=== PATIENT | male | born 1985 | race African-American/Black ===

== ENCOUNTER 2019-08-31 09:55 | Emergency (ER) | payer OTHER, SELFPAY ==
--- NOTE | 2019-08-31 10:03 | ED.EYEPROB ---
HPI - Eye Problem General Chief complaint: Eye Problems Stated complaint: Eye Source: patient and RN notes reviewed Mode of arrival: ambulatory Limitations: no limitations History of Present Illness HPI Narrative: This is a 34 years old male presents to the office for an evaluation of right eye irritation since he woke up this morning. Describes as foreign body sensation, tearing, blurry and very photosensitivity. He does not wear glasses or contact lens. Denies eye injury or trauma prior to symptom. 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 He does not recall any symptoms when he get off work. TD is up to date. Related Data Allergies Allergy/AdvReac Type Severity Reaction Status Date / Time No Known Allergies Allergy Unverified 10/02/18 19:42 Review of Systems Review of Systems: Narrative: CONSTITUTIONAL: Denies fever EYES: Reports left eye blurry, sensitivity/painful to light CARDIOVASCULAR: Denies chest pain RESPIRATORY: Denies cough GASTROINTESTINAL: Denies abdominal pain, nausea, vomiting SKIN: Denies rash MUSCULOSKELETAL: Denies acute joints pain NEUROLOGIC: Denies lightheaded/dizziness All other systems reviewed are negative, except as documented in HPI. [facility] Past Medical History Medical History (Updated 08/31/19 @ 10:23 by MARICHUY Boyd) No significant past medical history Comments At time of signature, I agree with nursing past medical, surgical, social and family history. There is no relevant family history pertinent to the presenting complaint. Exam Narrative: Exam Narrative: GENERAL: This is a well-nourished, well-developed patient, in no apparent distress. EYES: PERRL. EMOI s/p tetracaine eyedrop. Topical anesthetic was instilled with good anesthesia using 1gtt of opth anesthetic agent (tetracaine). Fluorescein stain of the R eye was performed with uptake of dye noted at 3 oclock. No epithelial defect was noted. NO FB, ulcer or dendritic lesions. Upper lid was everted and no FB or lesions were noted. Normal saline irrigation eye solution was performed and the patient tolerated the procedure well, no adverse reaction or complications. CARDIOVASCULAR: Regular rate and rhythm without murmurs, gallops, or rubs. RESPIRATORY: Clear to auscultation. Breath sounds equal bilaterally. No wheezes, rales, or rhonchi. GASTROINTESTINAL: Abdomen soft, non-tender, nondistended. Bowel sounds are active. No hepato-splenomegaly, or palpable masses. No guarding. SKIN: warm, intact with no suspicious lesions or rash, good texture and turgor. NEURO: awake, alert, and oriented to person, place and time. There were no obvious focal neurologic abnormalities. Steady gait Liseth Coma Scale Eye Opening: Spontaneous 4 Liseth Coma Scale Motor: Obeys Commands 6 Liseth Coma Scale Verbal: Oriented 5 Course Vital Signs Vital signs: Vital Signs Temperature 96.9 F L 08/31/19 10:07 Pulse Rate 85 08/31/19 10:07 Respiratory Rate 16 08/31/19 10:07 Blood Pressure 134/66 08/31/19 10:07 Pulse Oximetry 99 08/31/19 10:07 Temperature 96.9 F L 08/31/19 10:07 Pulse Rate 85 08/31/19 10:07 Respiratory Rate 16 08/31/19 10:07 Blood Pressure 134/66 08/31/19 10:07 Pulse Oximetry 99 08/31/19 10:07 MDM - Eye Problem MDM Narrative Medical decision making narrative: Discharge instructions reviewed with patient, as well as provided in writing per nursing staff. The instructions also include specific and strict return/GO TO THE ER as well as f/u information. All questions have been answered, and the patient deny any further questions with discharge and discharge plan. Differential Diagnosis Differential diagnosis: Likely corneal abrasion, conjunctivitis, acute iritis, subconjunctival hemorrhage, corneal ulcer and ruptured globe Critical Care Time Critical Care Time Critical Care Time: No Discharge Plan Discharge Clinical Impression: Corneal abrasion
[2019-08-31 10:07] VITALS: BP 134/66; PULSE 85; RESP 16; TEMP 36.1; O2SAT 99
== END 2019-08-31 10:25 | disposition home or self-care (01) ==
PROVIDERS: Emergency Provider Nurse Practitioner; PCP Emergency Medicine
DX: S05.01XA Injury of conjunctiva and corneal abrasion without foreign body, right eye, initial encounter (principal); X58.XXXA Exposure to other specified factors, initial encounter; K50.90 Crohn's disease, unspecified, without complications; E11.9 Type 2 diabetes mellitus without complications
CPT/HCPCS: 99213; A9270; G0463

== ENCOUNTER 2019-12-31 17:17 | Emergency (ER) | payer OTHER, SELFPAY ==
--- NOTE | 2019-12-31 17:26 | ED.GENADULT ---
HPI - General Adult General Chief complaint: Eye Problems Stated complaint: right eye pain Time Seen by Provider: 12/31/19 17:30 Source: patient Mode of arrival: ambulatory Limitations: no limitations History of Present Illness HPI narrative: 34-year-old male patient presents to the [facility] with complaints of right eye irritation that started approximately 2 AM this morning whenever he was getting dressed for work. Patient Cerner if something might of flushing his eye that has been having a little bit of pain, blurred vision and clear watery discharge. Patient states he has issues with eye irritation a lot. Patient does have sensitivity to the light but denies any itchiness. Related Data Allergies Allergy/AdvReac Type Severity Reaction Status Date / Time No Known Allergies Allergy Verified 12/31/19 17:32 Review of Systems Review of Systems: Narrative: CONSTITUTIONAL: Denies fever, chills, or sweats. EYES: Positive right eye blurry vision, positive redness, positive sensitivity to light positive clear discharge. ENT: Denies rhinorrhea, congestion, sore throat, or otalgia. CARDIOVASCULAR: Denies chest pain, palpitations, or edema. RESPIRATORY: Denies cough or dyspnea. GASTROINTESTINAL: Denies abdominal pain, nausea, vomiting, or diarrhea. GENITOURINARY: Denies dysuria or hematuria. SKIN: Denies rash or itching. MUSCULOSKELETAL: Denies back pain, joint pain, or myalgia. NEUROLOGIC: Denies headache, numbness, or weakness. PSYCHIATRIC: Denies anxiety or depression. [facility] Past Medical History Medical History (Updated 12/31/19 @ 17:44 by MARICHUY Gallo) Crohn's disease Diabetes Social History Social History Gender identity (if verbalized by the patient): Male Comments At the time of my signature I agree with nursing past medical history, surgical, social, and family history. There is no relevant family history pertinent to the presenting complaint. Exam Narrative: Exam Narrative: GENERAL: Well-appearing, well-nourished, and in no acute distress. HEAD: Normocephalic, atraumatic. EYES: PERRLA and EOM intact without limitation or complaint of pain, no periorbital soft tissue swelling ,no erythema, warmth or tenderness noted, no obvious deformity. No crusting or swelling.clear tearing. positive photophobia. No nystagmus No FB or lesion on lid eversion. Corneas grossly clear, no obvious FB or hyphens/hypopyon. injection to sclera of the right eye. Lids and lashes clear. ENT: Nares clear, no rhinorrhea or epistaxis. Mucous membranes moist. NECK: Supple. No lymphadenopathy CHEST: Clear to auscultation. No respiratory distress. HEART: Regular rate and rhythm. No murmur heard. Normal peripheral pulses. ABDOMEN: Soft, nontender, nondistended, normal active bowel sounds. EXTREMITIES: Normal range of motion. No edema. SKIN: Warm, dry, no rash. NEURO: No focal deficits. Alert and oriented x3. Course Vital Signs Vital signs: Vital Signs Temperature 37.3 C 12/31/19 17:28 Pulse Rate 83 12/31/19 17:28 Respiratory Rate 16 12/31/19 17:28 Blood Pressure 124/74 12/31/19 17:28 Pulse Oximetry 99 12/31/19 17:28 Temperature 37.3 C 12/31/19 17:28 Pulse Rate 83 12/31/19 17:28 Respiratory Rate 16 12/31/19 17:28 Blood Pressure 124/74 12/31/19 17:28 Pulse Oximetry 99 12/31/19 17:28 Vital signs reviewed. Procedures Other Procedure Procedure 1: Other Procedure: 1 drop of tetracaine was placed in patient's right eye. Fluorescein was used to dye the eye and the eye was examined under the Edwards lamp. There is a very mild corneal abrasion noted to the right eye in the 4:00 to 5:00 area. The eye was washed out with eyewash. patient tolerated procedure well Medical Decision Making Differential Diagnosis Differential Diagnosis: Differential diagnosis: Conjunctivitis, foreign body, corneal ulcer, Keratitis, dendritic lesions, corneal abrasi
[2019-12-31 17:28] VITALS: BP 124/74; PULSE 83; RESP 16; TEMP 37.3; O2SAT 99
== END 2019-12-31 17:45 | disposition home or self-care (01) ==
PROVIDERS: Emergency Provider Nurse Practitioner Family; PCP Emergency Medicine
DX: S05.01XA Injury of conjunctiva and corneal abrasion without foreign body, right eye, initial encounter (principal); X58.XXXA Exposure to other specified factors, initial encounter; E11.9 Type 2 diabetes mellitus without complications; K50.90 Crohn's disease, unspecified, without complications
CPT/HCPCS: 99213; A9270; G0463

== ENCOUNTER 2020-01-11 15:41 | Emergency (ER) | payer OTHER, SELFPAY ==
[2020-01-11 15:48] VITALS: BP 142/85; PULSE 78; RESP 15; TEMP 36.7; O2SAT 98
--- NOTE | 2020-01-11 17:10 | ED.WEAKNESS ---
HPI - Weakness General Chief complaint: Weakness Stated complaint: weakness Time Seen by Provider: 01/11/20 17:10 History of Present Illness HPI Narrative: After getting up from the toilet this afternoon he became very diaphoretic and light headed. He then let himself down to the ground. He believes that he breifly lost consciousness. He says that he feels like he has returned to baseline at the time of my evaluation. Prior to the episode he was in his usual state of health. No CP, palpitations, SOB, nausea, vomiting, pain/injury. Related Data Allergies Allergy/AdvReac Type Severity Reaction Status Date / Time No Known Allergies Allergy Verified 12/31/19 17:32 Review of Systems Review of Systems: All systems reviewed & are unremarkable except as noted in HPI and below Constitutional: Constitutional: Denies fever(s) and Denies weakness Cardiovascular: Cardiovascular: Denies chest pain Respiratory: Respiratory: Denies dyspnea Gastrointestinal: Gastrointestinal: Denies abdominal pain, Denies nausea and Denies vomiting Musculoskeletal: Musculoskeletal: Denies back pain Neurologic: Reports syncope, Denies headache(s), Denies numbness and Denies weakness Endocrine: Endocrine: Denies fatigue and Denies polydipsia [facility] Past Medical History Medical History Crohn's disease Diabetes Social History Social History Gender identity (if verbalized by the patient): Male Exam Const: General: healthy appearing, no acute distress and alert Orientation/consciousness: patient oriented x3 HENMT: Head: normal to inspection Resp: Effort & Inspection: normal respiratory effort Auscultation: clear to auscultation bilaterally, no rales, no rhonchi and no wheezes Cardio: Jugular venous distension: no JVD Rate: regular rate Rhythm: regular rhythm Heart sounds: no murmurs GI: Inspection: non-distended GI Palp: Yes Soft to palpation and No Tenderness to palpation present (GI) Skin: General skin exam: normal color Neuro: General: patient oriented x3, moves all extremities, no focal motor deficits and CN's II-XI intact bilaterally Speech: normal speech Gait exam (Neuro): Normal gait present Extrem: General: normal to inspection and no edema Psych: Appearance: well kempt Affect: normal affect Course Vital Signs Vital signs: Vital Signs Temperature 36.7 C 01/11/20 15:48 Pulse Rate 78 01/11/20 15:48 Respiratory Rate 15 01/11/20 15:48 Blood Pressure 142/85 H 01/11/20 15:48 Pulse Oximetry 98 01/11/20 15:48 Temperature 36.7 C 01/11/20 15:48 Pulse Rate 82 01/11/20 17:40 Respiratory Rate 15 01/11/20 15:48 Blood Pressure 134/71 01/11/20 17:40 Pulse Oximetry 98 01/11/20 15:48 MDM - Weakness MDM Narrative Medical decision making narrative: Most likely vagal syncope. Nothing acute on EKG. Asymptomatic at the time of my evaluation. Vitals reassuring Medical Records Attestation: I reviewed the patient's medical records. Discharge Plan Discharge Clinical Impression: Syncope Qualifiers: Syncope type: unspecified Qualified Code(s): R55 - Syncope and collapse Patient Disposition: Home, Self-Care Condition: Stable Instructions: Syncope (ED) Prescriptions: No Action erythromycin 5 mg/gram (0.5 %) ointment 1 applic RIGHTEYE BID Qty: 3.5 RF: 0 Follow-up/Referrals: Roberto Gr MD [Primary Care Provider] -
--- NOTE | 2020-01-11 17:17 | ECG_ITS ---
Measurements Intervals [place] Rate: 78 P: 23 AL: 178 QRS: 24 QRSD: 114 T: 30 QT: 364 QTc: 416 Interpretive Statements SINUS RHYTHM INTRAVENTRICULAR CONDUCTION DELAY NONSPECIFIC ST & T-WAVE ABNORMALITY- INF/LAT LEADS BASELINE ARTIFACT- I, II, III, AVL, AVF, V2, V4-V6 BORDERLINE ECG Electronically Signed On 01-11-2020 18:38:42 [employer]LECT[employer]ICAL [employer]CH[employer]IC by Enrique Elliott D.O.
[2020-01-11 17:39] VITALS: BP 139/71; BP 142/70; PULSE 68; PULSE 73
[2020-01-11 17:40] VITALS: BP 134/71; PULSE 82
== END 2020-01-11 18:19 | disposition home or self-care (01) ==
PROVIDERS: Emergency Provider Emergency Medicine; PCP Emergency Medicine
DX: R55 Syncope and collapse (principal); K50.90 Crohn's disease, unspecified, without complications; E11.9 Type 2 diabetes mellitus without complications; I45.9 Conduction disorder, unspecified; R94.31 Abnormal electrocardiogram [ECG] [EKG]
CPT/HCPCS: 93005; 99283

== ENCOUNTER 2020-07-30 20:11 | Emergency (ER) | payer BC, SELFPAY ==
--- NOTE | ~2020-07-30 | CT_ITS ---
EXAMINATION: CT lumbar spine wo con DATE: 07/30/2020 21:54 INDICATION: Lower back pain for 5 days, worsening. No known injury. TECHNIQUE: Computed tomography (CT) of the lumbar spine was performed without intravenous contrast. A utomated exposure control and iterative reconstruction technique were employed. Exam dose: 414.49 mG y-cm total exam DLP. COMPARISON: None FINDINGS: No fracture or dislocation or bone destruction. No spondylolysis or spondylolisthesis. Normal sacroiliac joints.. There is posterior central disc bulging at L4-5 and L5-S1. Consider MR imaging for more definitive ev aluation as clinically appropriate. IMPRESSION: Posterior central disc bulging at L4-5 and L5-S1. Consider MR evaluation as clinically a ppropriate Reviewed, dictated and finalized at [facility]. Reviewed, dictated and finalized at [facility]. IMPRESSION: Posterior central disc bulging at L4-5 and L5-S1. Consider MR eval uation as clinically appropriate
--- NOTE | ~2020-07-30 | CT_ITS ---
EXAMINATION: CT thoracic spine wo con DATE: 07/30/2020 21:54 INDICATION: Back pain TECHNIQUE: Computed tomography angiography (CTA) of the thoracic spine was performed with 100 mL Omni paque-350 intravenous contrast timed to evaluate the pulmonary arteries. Coronal maximum intensity pr ojection 3D-reconstructions were created by the technologist. Automated exposure control and iterativ e reconstruction technique were employed. Exam dose: 414.49 mGy-cm total exam DLP. Thoracic spine COMPARISON: None. FINDINGS: There are calcified left hilar and aortopulmonary window nodes consistent with old granulomatous dise ase. No fracture or dislocation or bone destruction of the thoracic spine. The thoracic pedicles and thora cic interspaces are intact. No paraspinal soft tissue thickening. IMPRESSION: No significant abnormality of the thoracic spine Reviewed, dictated and finalized at [facility]. Reviewed, dictated and finalized at [facility].
--- NOTE | ~2020-07-30 | CT_ITS ---
EXAMINATION: CT abdomen pelvis wo con DATE: 07/30/2020 21:54 INDICATION: Left flank pain, low back pain TECHNIQUE: Computed tomography (CT) of the abdomen and pelvis was performed without intravenous contr ast. Automated exposure control and iterative reconstruction technique were employed. Exam dose: 414 .49 mGy-cm total exam DLP. COMPARISON: None. FINDINGS: Likely benign fissural lymph nodes along the left greater fissure. No infiltrate or consoli dation at the lung bases. Normal heart size. No pericardial or pleural effusion. The gallbladder is contracted. No bile duct dilatation. The liver, spleen, pancreas and pancreatic du ct are unremarkable. Normal morphology of the adrenal glands. No renal mass lesion or urinary tract calculus or hydroureteronephrosis. Prostate calcifications. Prominent of fecal material in the colon. No bowel obstruction, bowel wall thickening, pneumatosis or intraperitoneal free air. No suspicious osteolytic or osteoblastic lesions. IMPRESSION: No significant abnormality; no urinary tract calculus or hydroureteronephrosis Reviewed, dictated and finalized at [facility]. Reviewed, dictated and finalized at [facility]. IMPRESSION: No significant abnormality; no urinary tract calculus or hydrouret eronephrosis
[2020-07-30 20:16] VITALS: BP 143/82; PULSE 77; RESP 18; TEMP 36.7; O2SAT 98
--- NOTE | 2020-07-30 20:39 | PC.NURSE ---
Addendum entered by Tay Bartholomew RN 07/30/20 20:40: Patient was noted to have steady gait but was slow to ambulate. reports pain is constant and denies any position of comfort Original Note: At this time patient reports pain to mid lower back that wraps around the left flank and radiates to the left groin. Denies numbness or tingling, denies urinary symptoms, and denies any urinary or bowel incontinence.
--- NOTE | 2020-07-30 20:44 | ED.BACK ---
HPI - Back Pain/Injury General Chief Complaint: Back Pain/Injury Stated Complaint: Back pain Time Seen by Provider: 07/30/20 20:44 History of Present Illness HPI Narrative: Back pain for the past few days. Acutely worse since this morning. Located in left lumbar back. Radiates throughout lumbar and thoracic back, into LLQ, and into left testicle. Worse with flexing at the hip. Worse with any bending or twisting. He saw a chiroprctor yesterday and tried taking tylenol without relief. No trauma, fever, weakness, numness, Urinary, or GI symptoms. Related Data Allergies Allergy/AdvReac Type Severity Reaction Status Date / Time No Known Allergies Allergy Verified 07/30/20 20:12 Review of Systems Review of Systems: All systems reviewed & are unremarkable except as noted in HPI and below Constitutional: Constitutional: Denies chills, Denies fever(s) and Denies weakness ENT: Denies dizziness Cardiovascular: Cardiovascular: Denies chest pain Respiratory: Respiratory: Denies dyspnea Gastrointestinal: Gastrointestinal: Reports no additional gastrointestinal complaints Genitourinary: Genitourinary: Denies hematuria, Denies dysuria, Denies penile discharge and Denies urinary incontinence Integumentary/Breasts: Skin/Breast: Denies rash Neurologic: Denies numbness and Denies weakness [facility] Past Medical History Medical History Crohn's disease Diabetes Social History Social History Gender identity (if verbalized by the patient): Male Exam Const: General: healthy appearing, no acute distress and alert Orientation/consciousness: patient oriented x3 HENMT: Head: normal to inspection Neck: Neck: normal visual inspection Chest: Chest palpation & inspection: no tenderness Resp: Effort & Inspection: normal respiratory effort Auscultation: clear to auscultation bilaterally, no rales, no rhonchi and no wheezes Cardio: Jugular venous distension: no JVD Rate: regular rate Rhythm: regular rhythm Heart sounds: no murmurs GI: Inspection: non-distended GI Palp: Yes Soft to palpation and No Tenderness to palpation present (GI) : Male General Exam: Yes normal external exam Scrotum: scrotum normal Testes: Testes normal, no testicular swelling and no testicular tenderness Back/Spine/Pelvis: Other: Diffuse left sided tenderness Skin: General skin exam: normal color Rashes: no rashes Neuro: General: patient oriented x3, moves all extremities and CN's II-XI intact bilaterally Speech: normal speech Gait exam (Neuro): Antalgic gait present Motor exam (neuro): 5/5 motor strength present throughout Sensory Exam: normal sensation Extrem: General: normal to inspection and no edema Psych: Appearance: well kempt Affect: normal affect Course Vital Signs Vital signs: Vital Signs Temperature 36.7 C 07/30/20 20:16 Pulse Rate 77 07/30/20 20:16 Respiratory Rate 18 07/30/20 20:16 Blood Pressure 143/82 H 07/30/20 20:16 Pulse Oximetry 98 07/30/20 20:16 Temperature 36.7 C 07/30/20 20:16 Pulse Rate 71 07/30/20 23:35 Respiratory Rate 18 07/30/20 23:35 Blood Pressure 124/70 07/30/20 23:35 Pulse Oximetry 98 07/30/20 23:35 MDM - Back Pain/Injury Differential Diagnosis Differential diagnosis: Likely lumbar radiculopathy, sciatica, strain of lumbar region, pyelonephritis, AAA and other (disc herniation, kidney stone) Medical Records Attestation: I reviewed the patient's medical records. Imaging Data Radiologist's impression: ITS Impressions Abdomen/Pelvis CT 07/30/20 22:08 IMPRESSION: No significant abnormality; no urinary tract calculus or hydroureteronephrosis Thoracic Spine CT 07/30/20 22:15 IMPRESSION: No significant abnormality of the thoracic spine Lumbar Spine CT 07/30/20 22:18 IMPRESSION: Posterior central disc bulging at L4-5 and L5-S1. Consid
[2020-07-30] MEDS: KETOROLAC (*BKC) 60 MG/2 ML VIAL IM (21:13)
[2020-07-30] MEDS: diazePAM INJ (*CRX) 10 MG/2 ML SYRINGE 5 MG IM (21:14)
[2020-07-30 22:21] VITALS: BP 121/65; PULSE 60; RESP 16; O2SAT 100
[2020-07-30] MEDS: DEXAMETHASONE SOD PHOS INJ 4 MG/ML VIAL 10 MG IM (22:56)
[2020-07-30] MEDS: HYDROcodone/acetaminophen (*CRX) 5-325 MG TABLET 1 TAB PO (22:57)
[2020-07-30 23:35] VITALS: BP 124/70; PULSE 71; RESP 18; O2SAT 98
== END 2020-07-30 23:35 | disposition home or self-care (01) ==
PROVIDERS: Emergency Provider Emergency Medicine
DX: M54.5 Low back pain (principal); K50.90 Crohn's disease, unspecified, without complications; E11.9 Type 2 diabetes mellitus without complications; M51.26 Other intervertebral disc displacement, lumbar region; M51.27 Other intervertebral disc displacement, lumbosacral region
CPT/HCPCS: 72128; 72131; 74176; 96372; 99284; A9270; J1100; J1885; J3360

== ENCOUNTER 2020-11-29 11:35 | Emergency (ER) | payer BC, SELFPAY ==
--- NOTE | ~2020-11-29 | XR_ITS ---
EXAMINATION: XR chest 1V portable DATE: 11/29/2020 12:31 INDICATION: Cough TECHNIQUE: frontal view of the chest was obtained. COMPARISON: None FINDINGS: The lungs are clear with no focal airspace opacities, pulmonary edema, pleural effusion or pneumothor ax. The cardiomediastinal silhouette is normal. Visualized bones and soft tissues are unremarkable. IMPRESSION: 1. No acute cardiopulmonary disease. Reviewed, dictated and finalized at [facility].
[2020-11-29 11:57] VITALS: BP 133/85; PULSE 87; RESP 18; TEMP 36.7; O2SAT 97
--- NOTE | 2020-11-29 13:39 | ED.GENADULT ---
HPI - General Adult General Chief complaint: Upper Respiratory Infection Stated complaint: uri Time Seen by Provider: 11/29/20 11:55 Source: patient Mode of arrival: ambulatory Limitations: no limitations History of Present Illness HPI narrative: Patient presents with chief complaint of abnormal feeling to his left ear and occasional intermittent pain and feelings of dizziness that have been going on since last week approximately Sunday. Patient states that he called the virtual doctor and was prescribed Augmentin and diagnosed with a sinus infection. Patient reports that he has noticed some drainage and occasional foul-smelling taste in his mouth. Patient also reports that he feels a sharp sensation from below his ear across his jawline on the left side. He denies having any dental pain or tenderness. 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 Related Data Allergies Allergy/AdvReac Type Severity Reaction Status Date / Time No Known Allergies Allergy Verified 11/29/20 12:08 Review of Systems Review of Systems: CONSTITUTIONAL: Denies fever, chills, or sweats. EYES: Denies visual changes, redness, or discharge. ENT: Reports intermittent left ear pain denies rhinorrhea, congestion, sore throat. CARDIOVASCULAR: Denies chest pain, palpitations, or edema. RESPIRATORY: Denies cough or dyspnea. GASTROINTESTINAL: Denies abdominal pain, nausea, vomiting, or diarrhea. GENITOURINARY: Denies dysuria or hematuria. SKIN: Denies rash or itching. MUSCULOSKELETAL: Denies back pain, joint pain, or myalgia. NEUROLOGIC: Reports intermittent dizziness denies headache, numbness, or weakness. PSYCHIATRIC: Denies anxiety or depression. [facility] Past Medical History Medical History Crohn's disease Diabetes Social History Social History Gender identity (if verbalized by the patient): Male Exam Narrative: GENERAL: Well-appearing, well-nourished, and in no acute distress. HEAD: Normocephalic, atraumatic. EYES: PERRLA and EOMI. ENT: Nares clear, no rhinorrhea or epistaxis. Mucous membranes moist. Oropharynx without tonsillar hypertrophy exudate or other lesions. Bilateral TMs pearly aparicio nonbulging NECK: Supple. No adenopathy or masses. Range of motion intact. CHEST: Clear to auscultation. No respiratory distress. No wheezes rales or rhonchi HEART: Regular rate and rhythm. No murmur heard. Normal peripheral pulses. EXTREMITIES: Normal range of motion. No edema. SKIN: Warm, dry, no rash. NEURO: No focal deficits. Alert and oriented x3. PSYCH: Normal mood and affect. Course Vital Signs Vital signs: Vital Signs Temperature 98.1 F 11/29/20 11:57 Pulse Rate 87 11/29/20 11:57 Respiratory Rate 18 11/29/20 11:57 Blood Pressure 133/85 11/29/20 11:57 Pulse Oximetry 97 11/29/20 11:57 Temperature 98.1 F 11/29/20 11:57 Pulse Rate 87 11/29/20 11:57 Respiratory Rate 18 11/29/20 11:57 Blood Pressure 133/85 11/29/20 11:57 Pulse Oximetry 97 11/29/20 11:57 Medical Decision Making MDM Narrative Medical decision making narrative: Discussed with the patient that he may have eustachian tube dysfunction. Discussed antihistamine and Flonase. Patient is already taking Augmentin which I have instructed him to finish the course. I have also referred him to ear nose throat for further investigation into his symptoms if they persist. Vital Signs Vital Signs: Vital Signs Temperature 98.1 F 11/29/20 11:57 Pulse Rate 87 11/29/20 11:57 Respiratory Rate 18 11/29/20 11:57 Blood Pressure 133/85 11/29/20 11:57 Pulse Oximetry 97 11/29/20 11:57 Temperature 98.1 F 11/29/20 11:57 Pulse Rate 87 11/29/20 11:57 Respiratory Rate 18 11/29/20 11:57 Blood Pressure 133/85 11/29/20 11:57 Pulse Oximetry 97 11/12
== END 2020-11-29 14:26 | disposition home or self-care (01) ==
PROVIDERS: Emergency Provider Emergency Medicine
DX: H69.82 Other specified disorders of Eustachian tube, left ear (principal); K50.90 Crohn's disease, unspecified, without complications; E11.9 Type 2 diabetes mellitus without complications
CPT/HCPCS: 71045; 99283

== ENCOUNTER 2021-04-02 17:00 | Emergency (ER) | payer BC, SELFPAY ==
--- NOTE | 2021-04-02 17:04 | ED.EYEPROB ---
HPI - Eye Problem General Chief complaint: Eye Problems Stated complaint: Eye Pain Time Seen by Provider: 04/02/21 17:05 Source: patient and RN notes reviewed History of Present Illness HPI Narrative: Patient is a 35-year-old male who presents the urgent care with complaints of left eye pain. Patient states that approximately once or twice a year he gets something in his eye and has to have it flushed. Patient denies of any changes in vision or trauma to the eye. Patient states that he was laying in bed when he got the feeling. States that he use saline to wash out the eye. No other acute complaints. No acute distress noted. Patient read the plan of care. Some parts of this dictation were generated by voice recognition software and may contain typographical and/or grammatical inaccuracies. Related Data Allergies Allergy/AdvReac Type Severity Reaction Status Date / Time No Known Allergies Allergy Verified 04/02/21 17:05 Review of Systems Review of Systems: CONSTITUTIONAL: Denies fever, chills, or sweats. EYES: Denies visual changes, redness, or discharge. Reports of possible foreign body to the left eye ENT: Denies rhinorrhea, congestion, sore throat, or otalgia. CARDIOVASCULAR: Denies chest pain, palpitations, or edema. RESPIRATORY: Denies cough or dyspnea. GASTROINTESTINAL: Denies abdominal pain, nausea, vomiting, or diarrhea. GENITOURINARY: Denies dysuria or hematuria. SKIN: Denies rash or itching. MUSCULOSKELETAL: Denies back pain, joint pain, or myalgia. NEUROLOGIC: Denies headache, numbness, or weakness. All other systems reviewed are negative, except as documented in HPI. PMFSH Past Medical History Medical History Crohn's disease Diabetes Social History Social History Gender identity (if verbalized by the patient): Male Comments At the time of my signature, I reviewed and agree with the nursing past medical, surgical, social, and family history. There is no relevant family history pertinent to the patient complaint. Exam Narrative: GENERAL: This is a well-nourished, well-developed patient, in no apparent distress. HEAD: normocephalic, atraumatic. EYES: PERRL. Right sclera clear/white. Vision is grossly intact. Clear tearing and mild injected sclera to the left. EARS: External ears normal NOSE: External nose normal with no obvious nasal discharge, nares without redness, no rhinorrhea. THROAT: Mucous membranes moist, posterior pharynx clear. NECK: Neck supple CARDIOVASCULAR: Regular rate and rhythm RESPIRATORY: Clear to auscultation. Breath sounds equal bilaterally. No wheezes, rales, or rhonchi. SKIN: warm, intact with no suspicious lesions or rash, good texture and turgor. NEURO: awake, alert, and oriented to person, place and time. There were no obvious focal neurologic abnormalities. EXTREMITIES: No clubbing, cyanosis, or edema. Course Course Level of Care: Express Care Visit Vital Signs Vital signs: Vital Signs Temperature 97.4 F L 04/02/21 17:09 Pulse Rate 68 04/02/21 17:09 Respiratory Rate 16 04/02/21 17:09 Blood Pressure 144/79 H 04/02/21 17:09 Pulse Oximetry 100 04/02/21 17:09 Temperature 97.4 F L 04/02/21 17:09 Pulse Rate 68 04/02/21 17:09 Respiratory Rate 16 04/02/21 17:09 Blood Pressure 144/79 H 04/02/21 17:09 Pulse Oximetry 100 04/02/21 17:09 Reviewed-patient is informed that they may have pre-hypertension or hypertension based on a blood pressure reading in the department. I recommend the patient call the primary care provider listed on their discharge instructions or a physician of their choice this week to arrange follow-up for further evaluation of possible pre-hypertension or hypertension. Procedures FB Removal Eye Foreign Body #1: Location: eye (L) Topical anesthetic used: tetracaine Foreign body: other (Eyelash)
[2021-04-02 17:09] VITALS: BP 144/79; PULSE 68; RESP 16; TEMP 36.3; O2SAT 100
== END 2021-04-02 17:30 | disposition home or self-care (01) ==
PROVIDERS: Emergency Provider Nurse Practitioner Family; PCP Emergency Medicine
DX: H57.89 Other specified disorders of eye and adnexa (principal); T15.92XA Foreign body on external eye, part unspecified, left eye, initial encounter; X58.XXXA Exposure to other specified factors, initial encounter; K50.90 Crohn's disease, unspecified, without complications; E11.9 Type 2 diabetes mellitus without complications
CPT/HCPCS: 99213; A9270; G0463

== ENCOUNTER 2022-08-18 12:07 | Outpatient (CLI) | payer BC, SELFPAY ==
[2022-08-18 12:53] LABS: Hematocrit 42.3 % (42.0-52.0); Hemoglobin 13.9 g/dL (14.0-18.0); Mean Corpuscular HGB Conc 32.9 g/dl (32-36); Mean Corpuscular Volume 85.1 fl (80-100); Mean Platelet Volume 9.8 fl (7.4-10.4); Platelet Count Result 324 k/mm3 (150-375); Red Blood Count 4.97 M/mm3 (4.6-6.20); Red Cell Distribution Width 15.1 % (11.5-14.5); White Blood Count 6.3 K/mm3 (4.5-10.0)
[2022-08-18 13:09] LABS: Alanine Aminotransferase 67 U/L (6-50); Albumin Level 4.5 g/dL (3.5-5.1); Alkaline Phosphatase 82 U/L (38-126); Anion Gap 8 mmol/L (8-16); Aspartate Amino Transferase 48 U/L (17-59); Bilirubin,Total 0.8 mg/dL (0.2-1.3); Blood Urea Nitrogen 15 mg/dL (9-20); CRP 1.2 mg/dL (<1.0); Calcium 9.4 mg/dL (8.4-10.2); Carbon Dioxide 27 mmol/L (22-30); Chloride 103 mmol/L (98-107); Estimated Glomerular Filt Rate > 60; Glucose 92 mg/dL (65-110); Potassium 4.3 mmol/L (3.4-5.0); Sodium 138 mmol/L (137-145)
[2022-08-18 13:16] LABS: Iron 88 ug/dL (49-181)
[2022-08-18 13:25] LABS: Percent Iron Saturation 28 % (20-50)
[2022-08-18 13:49] LABS: Hepatitis B Surface Antigen Negative (Negative)
[2022-08-18 13:55] LABS: HAV RESULT Negative (Negative); Hepatitis B Core IgM Result Negative (Negative)
[2022-08-18 14:11] LABS: Folic Acid 10.9 ng/mL (2.76->20)
[2022-08-18 14:12] LABS: Hepatitis B Surface Anti Res Positive; Hepatitis C Virus Antibody Negative (Negative)
[2022-08-18 17:20] LABS: Erythrocyte Sedimentation Rate 7 mm/hr (0-20)
[2022-08-21 14:24] LABS: NIL 0.03 IU/mL; Quantiferon TB Plus, 1T NEGATIVE (NEGATIVE); TB1-NIL <0.00 IU/mL; TB2-NIL <0.00 IU/mL
[2022-08-22 00:24] LABS: Vitamin D 1,25 (OH)2 Total 57 pg/mL (18-72); Vitamin D2 1,25 (OH)2 <8 pg/mL; Vitamin D3 1,25 (OH)2 57 pg/mL
[2022-08-22 13:23] LABS: Hepatitis A Antibody Total Nonreactive (Nonreactive); Hepatitis B Core Ab Total Nonreactive (Nonreactive)
== END 2022-08-18 12:08 | disposition home or self-care (01) ==
LOC: ANHLAB 12:10
PROVIDERS: PCP Family Medicine Adolescent Medicine; Visit Provider Nurse Practitioner
DX: K50.90 Crohn's disease, unspecified, without complications (principal); K60.2 Anal fissure, unspecified
CPT/HCPCS: 36415; 80053; 80074; 82607; 82652; 82728; 82746; 83540; 83550; 85027; 85652; 86140; 86480; 86704; 86706; 86708; 87340

== ENCOUNTER 2023-12-18 20:29 | Emergency (ER) | payer OTHER, MEDICAID, SELFPAY ==
--- NOTE | ~2023-12-18 | CT_ITS ---
CLINICAL INDICATION: Rectal pain. History of perirectal fistula. COMPARISON: 07/30/2020. TECHNIQUE: An enhanced CT of the abdomen and pelvis was performed utilizing multislice spiral technCalix ue reconstructed at 2.5 mm slice thickness. Coronal and sagittal reconstructions were performed. Th is CT examination was performed utilizing dose reduction techniques. DLP: 415 mGy-cm FINDINGS/OBSERVATIONS: Visualized lower thorax:The bilateral lung bases are clear. The heart is of normal size, without noé cardial effusion. Liver: The liver enhances homogeneously and is not enlarged. Gallbladder and biliary system: The gallbladder is decompressed, and otherwise unremarkable. Pancreas: The pancreas enhances homogeneously, without ductal dilatation. Spleen: Punctate calcifications within the spleen suggesting prior granulomatous disease. Spleen is n ot enlarged and demonstrates homogeneous enhancement. Kidneys: The bilateral kidneys enhance symmetrically without hydronephrosis Adrenal glands: Unremarkable Gastrointestinal tract: Trace stasis within the colon, without diverticulosis. Appendix:The appendix is of normal caliber (axial series, images 115 through 125). Vasculature: Unremarkable Lymph nodes: Prominent lymph nodes within the root of the mesentery and within the retroperitoneum, a n interval change from prior. Pelvic structures:No presacral inflammation. No infiltration of the perirectal soft tissues suggest a fistulous tract patient. The prostate gland is prominent for a patient of this age and contains bulky calcifications. Body wall and musculoskeletal: No significant degenerative disease within the lower thoracic and lumb osacral spine. Well-circumscribed focus of decreased attenuation is identified within the right ilium measuring 21 m m, unchanged from 2020. No lytic or blastic lesions otherwise detected. IMPRESSION: Prominent lymph nodes within the root of the mesentery or retroperitoneum, an interval change from pr ior. Otherwise, unremarkable CT examination of the abdomen and pelvis, as detailed above. Reviewed, dictated and finalized at location A. [employer] IMPRESSION: Prominent lymph nodes within the root of the mesentery or retroperitoneum, an i nterval change from prior. Otherwise, unremarkable CT examination of the abdomen and pelvis, as detailed larissa wang.
[2023-12-18 20:31] VITALS: BP 130/90; PULSE 101; RESP 20; TEMP 36.1; O2SAT 100
--- NOTE | 2023-12-18 21:06 | ED_ITS ---
HPI - General Adult General Chief complaint: Unspecified Stated complaint: rectal pain Time Seen by Provider: 12/18/23 20:34 History of Present Illness HPI narrative: 38-year-old male presents emergency department with at bedside for rectal pain. Patient states the pain is been going on for quite a while this seems to have been worse the past 3 days. He states the pain is sharp and hurts all the time. He denies aggravating or alleviating factors. States he has been using suppositories and creams without improvement. Patient also states he has had bright red blood streaked stool for 1 year. Patient states he was told he had Crohn's disease several years ago. He follows with GI specialist, Dr. Nieves, who reportedly performed a colonoscopy on the patient the past several months which showed no evidence of Crohn's disease. Patient states he underwent a CT scan by GI recently which showed scattered large mesenteric lymph nodes in a large left inguinal lymph node. He is referred back to his PCP for further evaluation of this in is planning to schedule an appointment for biopsy. Patient also states his PCP is planning to refer him to a colorectal surgeon for further evaluation of his chronic abdominal and rectal pain. Patient states he has a history of fistulas that resolved other on without any surgeries. He is not on any medications for Crohn's currently base to take Humira. Patient is not anticoagulated. He takes tramadol and dicyclomine prn for his chronic abdominal and rectal pain. He denies chest pain or shortness of breath, lightheadedness or syncope. Denies current abdominal pain. Related Data Allergies Allergy/AdvReac Type Severity Reaction Status Date / Time seasonal allergies Allergy Mild Sneezing Uncoded 12/17/23 12:43 Review of Systems Review of Systems: All systems reviewed & are unremarkable except as noted in HPI and below PMFSH Past Medical History Medical History Diabetes Hematochezia Obesity Rectal pain Social History Social History Smoking status: Never smoker Lack of Transportation: No Lack of Food: Never True Current Housing: I Have Housing Concerned About Future Housing: No Difficulty Paying Gas/Electric Bills: Decline to Answer Difficulty Paying for Meds: No Currently Unemployed: No Education: High School Diploma/GED Difficulty w/ Childcare or Family Care: No Gender identity (if verbalized by the patient): Male Exam Narrative: GENERAL: Well-appearing, well-nourished, and in no acute distress. HEAD: Normocephalic, atraumatic. EYES: EOMI. ENT: Nares clear, no rhinorrhea or epistaxis. Mucous membranes moist. NECK: Supple. CHEST: Clear to auscultation. No respiratory distress. HEART: Regular rate and rhythm. No murmur heard. Normal peripheral pulses. ABDOMEN: Soft, nontender, nondistended, normal active bowel sounds. No rebound, guarding rigidity. RECTAL: Chaperoned by Shanice Payne: 3 small external hemorrhoids that are nonthrombosed, tender to palpation. No fissures visualized. No hematochezia or melena. Significant tenderness digital rectal exam with large palpable internal hemorrhoid. Good rectal tone. Hemoccult negative. EXTREMITIES: Normal range of motion. No edema. SKIN: Warm, dry, no rash. NEURO: No focal deficits. Alert and oriented x3 Course Vital Signs Vital signs: Vital Signs Temperature 97 F L 12/18/23 20:31 Pulse Rate 101 H 12/18/23 20:31 Respiratory Rate 20 12/18/23 20:31 Blood Pressure 130/90 12/18/23 20:31 Pulse Oximetry 100 12/18/23 20:31 Oxygen Delivery Room Air 12/18/23 20:31 Temperature 97 F L 12/18/23 20:31 Pulse Rate 101 H 12/18/23 20:31 Respiratory Rate 20 12/18/23 20:31 Blood Pressure 130/90 12/18/23 20:31 Pulse Oximetry 100 12/18/23 20:31 Oxygen Delivery Room Air 12/18/23 20:31 Medical Decision Making MDM Narrative Medical decision making narrative: 38-year-old male with chronic GI issues presents to the emergency department for rectal pain for a long time, worsening over the past 3 days. Triage vitals with mild tachycardia of 101, otherwise unremarkable. Patient is afebrile nontoxic appearing. Exam is significant for the above. Notably 3 small nonthrombosed external hemorrhoids and a probable large internal hemorrhoid is tender palpation. No active bleeding, Hemoccult negative. CBC without leukocytosis. Hemoglobin is stable at 13.7. Chemistries are unremarkable. Coags are normal. CT abdomen pelvis shows prominent lymph nodes within the root of the mesentery and retroperitoneum, otherwise unremarkable CT exam. Patient updated on all workup. He has no lymphadenopathy along the mesentery that is being followed outpatient. He is in the process of scheduling with IR for biopsy. Suspect symptoms are secondary to hemorrhoids. He was given topical viscous lidocaine in the ED with improvement in rectal pain. Will trial preparation H suppositories and topical viscous lidocaine for home have a follow-up closely with his GI physician and PCP. Strict ED return precautions discussed. He is agreeable to plan verbalized understanding. Discharged in stable condition. Vital Signs Vital Signs: Vital Signs Temperature 97 F L 12/18/23 20:31 Pulse Rate 101 H 12/18/23 20:31 Respiratory Rate 20 12/18/23 20:31 Blood Pressure 130/90 12/18/23 20:31 Pulse Oximetry 100 12/18/23 20:31 Oxygen Delivery Room Air 12/18/23 20:31 Temperature 97 F L 12/18/23 20:31 Pulse Rate 101 H 12/18/23 20:31 Respiratory Rate 20 12/18/23 20:31 Blood Pressure 130/90 12/18/23 20:31 Pulse Oximetry 100 12/18/23 20:31 Oxygen Delivery Room Air 12/18/23 20:31 Lab Data 12/18/23 21:20 12/18/23 21:20 Labs: Lab Results 12/18/23 Range/Units 21:20 WBC 7.4 (4.5-10.0) K/mm3 RBC 4.99 (4.6-6.20) M/mm3 Hgb 13.7 L (14.0-18.0) g/dL Hct 40.5 L (42.0-52.0) % MCV 81.2 (80-100) fl MCH 27.5 (26-34) pg MCHC 33.8 (32-36) g/dl RDW 15.8 H (11.5-14.5) % Plt Count 383 H (150-375) k/mm3 MPV 8.8 (7.4-10.4) fl Immature Gran % (Auto) 0.4 (0-0.5) % Neut % (Auto) 57.6 (45.5-73.1) % Lymph % (Auto) 21.7 (18.3-44.2) % [place] % (Auto) 14.4 H (2.6-8.5) % Eos % (Auto) 4.7 H (0-4.4) % Baso % (Auto) 1.2 (0.2-1.2) % Lymph # (Auto) 1.61 (0.9-3.2) K/mm3 [place] # (Auto) 1.1 H (0.1-0.6) K/mm3 Eos # (Auto) 0.4 H (0-0.3) K/mm3 Baso # (Auto) 0.1 (0.0-0.1) K/mm3 Abs Immat Gran (auto) 0.03 (0.00-0.031) K/mm3 Absolute Neuts (auto) 4.3 (1.3-6.7) K/mm3 Absolute Nucleated RBC 0.000 (0.0-0.012) K/mm3 Nucleated RBC % 0.0 (0.0-0.2) % PT 14.2 (11.1-14.7) Seconds INR 1.0 APTT 34.3 (22.3-36.8) Seconds Sodium 138 (137-145) mmol/L Potassium 3.7 (3.4-5.0) mmol/L Chloride 101 (98-107) mmol/L Carbon Dioxide 27 (22-30) mmol/L Anion Gap 10 (4-12) mmol/L BUN 12 (9-20) mg/dL Creatinine 1.30 (0.7-1.3) mg/dL Estim Creat Clear Calc 102 ml/min Estimated GFR > 60 (59 - ) Glucose 96 (65-110) mg/dL Calcium 8.9 (8.4-10.2) mg/dL Total Bilirubin 0.5 (0.2-1.3) mg/dL AST 34 (17-59) U/L ALT 34 (6-50) U/L Alkaline Phosphatase 105 (38-126) U/L Total Protein 8.0 (6.3-8.2) g/dL Albumin 4.1 (3.5-5.1) g/dL Discharge Plan Discharge Clinical Impression: Lymphadenopathy, mesenteric Hemorrhoids Qualifiers: Hemorrhoid type: unspecified Qualified Code(s): K64.9 - Unspecified hemorrhoids Patient Disposition: Home, Self-Care Condition: Stable Instructions: Antibiotic Form, Hemorrhoids (DC), Rectal Bleeding (ED), Lymphadenopathy (ED) Additional Instructions: Your evaluated in the emergency department for rectal pain. Your found have several hemorrhoids on exam. The CT scan shows enlarged lymph nodes in your abdomen but no evidence of a fistula or other acute abdominal findings. Please continue to follow-up with her primary care and schedule your appointment to have the biopsy of her lymph nodes performed. Continue using the compound ointment that was prescribed by GI along with preparation H suppositories. I have also provided topical lidocaine to use as needed for pain. Return to the emergency department if you develop significant blood loss, shortness of breath or lightheadedness, loss of consciousness, abdominal pain, fever or other concerning symptoms. Prescriptions: New lidocaine HCl [Lidocaine Viscous] 2 % solution 1 applic topical QID PRN (Reason: pain) Qty: 300 0RF Rx Instructions: Apply to rectum as prescribed for pain Preparation H (pe) 0.25 % suppository 1 supp RECTAL BID PRN (Reason: hemorrhoids) Qty: 24 0RF No Action tramadol 25 mg tablet 25 mg PO Q6H PRN (Reason: pain, severe) Qty: 10 0RF Rx Instructions: Take 1 tablet my mouth every 6 hours as needed for severe pain. dicyclomine 20 mg tablet 20 mg PO QID PRN (Reason: abdominal pain) Qty: 30 0RF Rx Instructions: Take 20 mg by mouth up to 4 times daily for abdominal pain. pharmacy compounding accessory Misc See Rx Instructions miscellaneous .COMPLEX Qty: 1 0RF Rx Instructions: Lidocaine 2%, Nifedipine 0.2%, Hydrocortisone 2.5% Mix 1:1:1 Apply pea-sized amount on anus 3-4 times per day Follow-up/Referrals: Tay Gilliland MD [Primary Care Provider] -
[2023-12-18] MEDS: HYDROcodone/acetaminophen (*CRX) 5-325 MG TABLET 1 TAB PO (21:16)
[2023-12-18 21:34] LABS: Basophils Absolute Auto 0.1 K/mm3 (0.0-0.1); Basophils Percent Auto 1.2 % (0.2-1.2); Eosinophils Absolute Auto 0.4 K/mm3 (0-0.3); Eosinophils Percent Auto 4.7 % (0-4.4); Hematocrit 40.5 % (42.0-52.0); Hemoglobin 13.7 g/dL (14.0-18.0); Immature Granulocyte Absolute 0.03 K/mm3 (0.00-0.031); Immature Granulocyte Percent A 0.4 % (0-0.5); Lymphocytes Absolute Auto 1.61 K/mm3 (0.9-3.2); Lymphocytes Percent Auto 21.7 % (18.3-44.2); Mean Corpuscular HGB Conc 33.8 g/dl (32-36); Mean Corpuscular Hemoglobin 27.5 pg (26-34); Mean Corpuscular Volume 81.2 fl (80-100); Mean Platelet Volume 8.8 fl (7.4-10.4); Monocytes Absolute Auto 1.1 K/mm3 (0.1-0.6); Monocytes Percent Auto 14.4 % (2.6-8.5); Neutrophils Absolute Auto 4.3 K/mm3 (1.3-6.7); Neutrophils Percent Auto 57.6 % (45.5-73.1); Platelet Count Result 383 k/mm3 (150-375); Red Blood Count 4.99 M/mm3 (4.6-6.20); Red Cell Distribution Width 15.8 % (11.5-14.5); White Blood Count 7.4 K/mm3 (4.5-10.0)
[2023-12-18 21:42] LABS: Alanine Aminotransferase 34 U/L (6-50); Albumin Level 4.1 g/dL (3.5-5.1); Alkaline Phosphatase 105 U/L (38-126); Anion Gap 10 mmol/L (4-12); Aspartate Amino Transferase 34 U/L (17-59); Bilirubin,Total 0.5 mg/dL (0.2-1.3); Blood Urea Nitrogen 12 mg/dL (9-20); Calcium 8.9 mg/dL (8.4-10.2); Carbon Dioxide 27 mmol/L (22-30); Chloride 101 mmol/L (98-107); Estimated CRCL calculation 102 ml/min; Estimated Glomerular Filt Rate > 60; Glucose 96 mg/dL (65-110); Potassium 3.7 mmol/L (3.4-5.0); Sodium 138 mmol/L (137-145)
[2023-12-18 21:43] LABS: Prothrombin Time 14.2 Seconds (11.1-14.7)
[2023-12-18 21:44] LABS: Partial Thromboplastin Time 34.3 Seconds (22.3-36.8)
--- NOTE | 2023-12-18 22:16 | PC.NURSE ---
patient taking his monitoring off and turning off the monitor. Also reports that [place] did not touch his pain. BALDEV Turpin aware
[2023-12-18] MEDS: LIDOCAINE HCL 2% VISC SOLN 15 ML UDC XX (22:22)
== END 2023-12-18 23:14 | disposition home or self-care (01) ==
PROVIDERS: Emergency Provider Physician Assistant; PCP Family Medicine Adolescent Medicine
DX: K64.9 Unspecified hemorrhoids (principal); R59.1 Generalized enlarged lymph nodes; E11.9 Type 2 diabetes mellitus without complications; E66.9 Obesity, unspecified; Z68.37 Body mass index [BMI] 37.0-37.9, adult
CPT/HCPCS: 36415; 74177; 80053; 85025; 85610; 85730; 96374; 99284; A9270; Q9967